=== PATIENT | male | born 1995 | race Caucasian/White ===

== ENCOUNTER 2021-05-04 15:23 | Emergency (ER) | payer BC ==
[~2021-05-04] VITALS: Ht 172.7 cm; Wt 108.9 kg
[2021-05-04 17:06] LABS: URINE BILIRUBIN NEGATIVE (Negative); URINE BLOOD NEGATIVE (Negative); URINE CLARITY CLEAR; URINE COLOR YELLOW; URINE GLUCOSE-RANDOM NEGATIVE (Negative); URINE KETONES NEGATIVE (Negative); URINE LEUKOCYTES-REFLEX NEGATIVE (Negative); URINE NITRITE-REFLEX NEGATIVE (Negative); URINE PROTEIN NEGATIVE (Negative); URINE SPECIFIC GRAVITY >= 1.030 (1.005-1.030); URINE UROBILINOGEN 0.2 E.U./dl (0.2-1.0)
[2021-05-04 17:29] VITALS: BP 154/72
== END 2021-05-04 17:30 | disposition home or self-care (01) ==
LOC: M.ERS 15:23
PROVIDERS: Family Medicine
DX: N50.812 Left testicular pain (principal)